=== PATIENT | female | born 1970 | race Caucasian/White ===

== ENCOUNTER 2022-10-28 15:51 | Emergency (ER) | payer MEDICARE, OTHER ==
[~2022-10-28] VITALS: Ht 152.4 cm; Wt 130.6 kg
[2022-10-28 15:53] VITALS: BP 141/90; PULSE 82; RESP 20; TEMP 98.6; O2SAT 100
--- NOTE | 2022-10-28 15:58 | NUR ---
BIBA BLS TO ER BED 4
--- NOTE | 2022-10-28 16:00 | NUR ---
51 Y/O FEMALE BIBA FROM HOME, C/O N/V/D, BRIGHT RED BLEEDING FROM RECTAL AREA, ABD CRAMPING, HERNANDEZ, BL LEG CRAMPING, DIZZY FOR 1 WEEK; SKIN IS PINK/WARM/DRY; AAOX4 WITH EVEN AND STEADY GAIT; LUNGS CLEAR BL; HR EVEN AND REGULAR; PT DENIES ANY FEVER, CP, SOB, OR COUGH AT THIS TIME; PATIENT STATES PAIN OF 9/10 AT THIS TIME; VSS; PATIENT POSITIONED FOR COMFORT; HOB ELEVATED; BEDRAILS UP X2; BED DOWN. ER MD MADE AWARE OF PT STATUS. CALL LIGHT WITHIN REACH. PMH: HTN ADVERSE REACTION: SERTRALINE
[2022-10-28] MEDS ORDERED: KETOROLAC 15 MG/ML VIAL IVP ONE (16:30)
[2022-10-28] MEDS ORDERED: DICYCLOMINE 20 MG/2 ML VIAL IM ONE (16:30)
[2022-10-28] MEDS ORDERED: NACL 0.9% 1,000 ML IV ONE (16:30)
--- NOTE | 2022-10-28 16:44 | NUR ---
PT STATES SHE WANTS IV SPECIFICALLY IN FOREARM BECAUSE SHE STATES "I HAVE BIPOLAR DISORDER AND ANXIETY, I DONT WANT MY IV TO HURT AND IT NEEDS TO BE HERE BECAUSE THIS IS WHERE THEY ALWASY GET IT." ATTEMPTED TO START IV IN REQUESTED AREA, WAS NOT ABLE TO ESTABLISH AREA. ERMD NOTIFIED. PT MEDS SWITCHES TO PO, PT DENIES NAUSEA OR VOMITING AT THIS TIME.
[2022-10-28] MEDS ORDERED: DICYCLOMINE HCL LIQUID 10 MG/5 ML UDC PO ONE (17:00)
[2022-10-28 17:01] LABS: BASOPHILS % (AUTO) 0.6 % (0.0-2.0); EOSINOPHILS # (AUTO) 0.1 K/uL (0-0.4); EOSINOPHILS % (AUTO) 1.1 % (0.0-4.0); HEMATOCRIT 40.6 % (36-48); HEMOGLOBIN 13.7 g/dL (12.0-16.0); LYMPHOCYTES # (AUTO) 1.2 K/uL (2.5-16.5); LYMPHOCYTES % (AUTO) 20.3 % (20.5-51.1); MEAN CORPUSCULAR HEMOGLOBIN 29 pg (27-31); MEAN CORPUSCULAR HGB CONC 34 g/dL (33-37); MEAN CORPUSCULAR VOLUME 85.3 fL (80-94); MONOCYTES # (AUTO) 0.7 K/uL (0.8-1.0); MONOCYTES % (AUTO) 12.4 % (1.7-9.3); NEUTROPHILS # (AUTO) 3.9 K/uL (1.8-7.7); NEUTROPHILS % (AUTO) 65.6 % (42.2-75.2); PLATELET COUNT (AUTO) 222 K/uL (140-450); RED BLOOD CELL COUNT(AUTO) 4.76 MIL/uL (4.20-5.40); RED CELL DISTRIBUTION WIDTH 13.2 % (11.6-13.7)
[2022-10-28 17:29] LABS: ALBUMIN 3.3 g/dL (3.4-5.0); ANION GAP 12.6 (8-16); CREATININE 0.9 mg/dL (0.6-1.3); PHOSPHORUS 4.2 mg/dL (2.5-4.9); POTASSIUM 3.6 mmol/L (3.5-5.1); TOTAL BILIRUBIN 0.3 mg/dL (0.0-1.0)
[2022-10-28] MEDS ORDERED: BEN10 PO (17:48)
[2022-10-28 17:59] VITALS: O2SAT 100
--- NOTE | 2022-10-28 18:01 | NUR ---
Patient discharged with v/s stable. Written and verbal after care instructions given and explained. Patient alert, oriented and verbalized understanding of instructions. Ambulatory with steady gait. All questions addressed prior to discharge. ID band removed. Patient advised to follow up with PMD. Rx of BENTYL given. Patient educated on indication of medication including possible reaction and side effects. Opportunity to ask questions provided and answered.
== END 2022-10-28 17:59 | disposition home or self-care (01) ==
LOC: MED 15:51
DX: R19.7 Diarrhea, unspecified (principal); R10.9 Unspecified abdominal pain; I10 Essential (primary) hypertension; F31.9 Bipolar disorder, unspecified; Z79.899 Other long term (current) drug therapy; Z88.8 Allergy status to other drugs, medicaments and biological substances; Z90.49 Acquired absence of other specified parts of digestive tract
CPT/HCPCS: 36415; 80053; 81002; 81025; 83690; 83735; 84100; 85025; 93005; 99284; J0500